=== PATIENT | male | born 1985 | race Two or more races ===

== ENCOUNTER 2024-08-10 10:28 | Emergency (ER) | payer OTHER ==
[~2024-08-10] VITALS: Ht 172.7 cm; Wt 89.4 kg
[2024-08-10 10:36] VITALS: BP 108/72; TEMP 98; O2SAT 97
[2024-08-10] MEDS ORDERED: OFLO5DRO5 RIGHT EAR (11:25)
[2024-08-10] MEDS ORDERED: AMOX-430 PO (11:25)
== END 2024-08-10 11:35 | disposition home or self-care (01) ==
LOC: ER 10:33
DX: H66.91 Otitis media, unspecified, right ear (principal); H60.91 Unspecified otitis externa, right ear